=== PATIENT | male | born 1950 | race Caucasian/White ===

== ENCOUNTER 2017-05-27 20:32 | Inpatient (IN) | payer MEDICARE, MEDICAID ==
[2017-05-27 21:20] LABS: Hematocrit 42.4 % (42.0-52.0); Mean Cell Volume 96.6 fl (78-100); Mean Corpuscular Hemoglobin 29.6 pg (27-31); Mean Corpuscular Hgb Conc 30.7 g/dl (32-36); Mean Platelet Volume 10.1 fl (6.0-9.5); Neutrophil # 6.2 K/mm3 (1.3-6.0); Neutrophil % 69.8 % (42-75.0); Platelet Count 241 K/mm3 (150-450); Red Blood Count 4.39 M/mm3 (4.7-6.0); Red Cell Distribution Width 16.8 % (11.5-14.0); White Blood Count 8.8 K/mm3 (4.0-10.5)
[2017-05-27 21:40] LABS: ALT 15 U/L (19-67); AST 10 U/L (0-48); Alkaline Phosphatase * 88 U/L (50-170); Anion Gap 12.5 mmol/L (6.8-13.8); BNP * 4753 pg/mL (5-350); Bilirubin, Total 0.4 mg/dL (0.0-1.1); Blood Urea Nitrogen 70 mg/dL (6-23); CRP 2.5 mg/dL (0.0-0.9); Ca. Corrected For Albumin 8.5 mg/dL (8.4-10.2); Chloride 105 mmol/L (97-106); Glucose * 134 mg/dL (70-110); Potassium 5.5 mmol/L (3.4-4.6); Sodium 142 mmol/L (132-142); Total Protein 7.4 gm/dL (6.2-8.2)
[2017-05-27 21:44] LABS: Troponin I Less than 0.017 ng/ml (0.00-0.10)
[2017-05-27] MEDS ORDERED: NORMAL SALINE 1,000 ML IV PRN (22:23)
[2017-05-27] MEDS ORDERED: DEXTROSE 50%-WATER 50 ML SYRG IV ONE (22:24)
[2017-05-27] MEDS ORDERED: INSULIN REGULAR, HUMAN 100 UNITS/ML VIAL IV ONE (22:25)
[2017-05-27] MEDS ORDERED: CALCIUM GLUCONATE 4.65 MEQ/10 ML VIAL IV ONE ×2 (22:27→22:40)
[2017-05-27] MEDS ORDERED: ALBUTEROL SULFATE 2.5 MG/0.5 ML VIAL.NEB IH ONE ×2 (22:27→22:40)
[2017-05-27] MEDS ORDERED: SODIUM POLYSTYRENE SULFON/SORB 15 G/60 ML BTL PO ONE (22:29)
[2017-05-27] MEDS ORDERED: FUROSEMIDE 10 MG/ML VIAL IV ONE (22:33)
[2017-05-27] MEDS ORDERED: FUROSEMIDE 10 MG/ML VIAL ONE (22:40)
[2017-05-27] MEDS ORDERED: INSULIN REGULAR, HUMAN 100 UNITS/ML VIAL ONE (22:41)
[2017-05-27] MEDS ORDERED: SODIUM POLYSTYRENE SULFON/SORB 15 G/60 ML BTL ONE (22:41)
[2017-05-27] MEDS ORDERED: DEXTROSE 50%-WATER 50 ML SYRG ONE (22:41)
--- NOTE | 2017-05-27 23:24 | ERNOTE ---
Dyspnea - Date Date of Service: 05/27/17 - General Presenting Symptoms: shortness of breath, difficulty of breathing Time Seen by Provider: 05/27/17 21:03 Source: patient - Immun/Allergies/Home Medications Immunizations: IMMUNIZATION HX Immunizations Up to Date Yes History of Influenza Vaccine No Hx Pneumococcal Vaccination Yes Allergies/Adverse Reactions: Allergies No Known Allergies Allergy (Verified 02/25/16 13:15) Home Medications: HOME MEDICATIONS Potassium Chloride [Klor-Con M10] 10 meq PO BID 01/03/16 [Last Taken Unknown] RX: Omeprazole [Prilosec] 20 mg PO DAILY #30 cap 01/06/16 [Last Taken Unknown] Furosemide [Lasix] 80 mg PO DAILY 02/09/16 [Last Taken Unknown] RX: Lisinopril 5 mg PO DAILY 02/25/16 [Last Taken Unknown] Carvedilol [Coreg] 3.125 mg PO DAILY 07/31/16 [Last Taken Unknown] RX: Betamethasone Dipropionate 45 gm TP BID #45 cream..g. 07/31/16 [Last Taken Unknown] - History of Present Illness Narrative: patient had labs today and noted to have potassium of 6.5, instructed to come to hospital for treatment Severity: moderate Treatment ALLERGY PHYSICIAN: by patient Initiating event: Reports: unknown Frequency of episodes: Reports: frequent episodes Modifying Factors - (Improves): Reports: nothing Modifying Factors (Worsens): Reports: activity Associated Symptoms-Dyspnea: Reports: ankle/leg swelling, dizziness, lightheadedness, weakness Prior Treatment: Reports: recently seen, treated by physician Review of Systems - Review of Systems Constitutional: Present: See HPI, fatigue, malaise EYE: Present: no symptoms reported ENT: Present: no symptoms reported Respiratory: Present: shortness of breath, cough, orthopnea, wheezing Cardiology: Present: no symptoms reported Gastrointestinal/Abdominal: Present: no symptoms reported Genitourinary: Present: no symptoms reported Musculoskeletal: Present: no symptoms reported Skin: Present: no symptoms reported Neurological: Present: no symptoms reported Endocrine: Present: no symptoms reported Hematologic/Lymphatic: Present: no symptoms reported Psych: Present: no symptoms reported All Other Systems: All systems neg except as marked - Patient's Past Medical History Patient History - Medical: Chronic Pain, GERD Patient History - Cardiac/Respiratory: CHF, COPD Patient History - Cancer: No Hx of Cancer Patient History - Surgical Procedures: No surgical history Patient History - Other: None - Family History Mother Family History - Medical: Father Family History - Medical: , No pertinent hx - Social History Living Situations: home Abuse History: No History of abuse Psych History: No pertinent hx Smoking Status: Current every day smoker Patient requests Smoking Cessation Consult: No Initiate information on Smoking Cessation: No Alcohol Use: rarely Drug Use: none - Immunizations Immunizations Up to Date: Yes Hx Pneumococcal Vaccination: Yes History of Influenza Vaccine: No Physical Exam - Physical Exam General Appearance: Present: mild distress, anxious Head Exam: Present: normal inspection, no evidence of injury Eye Exam: Normal inspection: bilateral, PERRL: bilateral, EOMI: bilateral Ears, Nose, Throat: Present: normal ENT inspection Neck: Present: normal inspection, nontender Respiratory: Present: respiratory distress, rales, rhonchi, wheezing Cardiovascular/Chest: Present: regular rate, rhythm, no murmur, normal peripheral pulses Peripheral Pulses: N=norm/S=strong/W=weak/B=bound/A=absent: Carotid (R): Normal , Carotid (L): Normal, Radial (R): Normal, Radial (L): Normal, Femoral (R): Normal, Femoral (L): Normal, Dorsalis-pedis (R): Normal, Dorsalis-pedis (L): Normal Gastrointestinal/Abdominal: Present: normal bowel sounds, nontender, nondistended, soft Back Exam: Present: normal inspection, normal range of motion, no CVA tenderness , no vertebral tenderness Extremity Exam: Present: normal inspection, normal range of motion, decreased range of motion, pedal edema Neurological Exam: Present: alert, oriented, normal mood/affect DTR: N=norm/NB=norm/brisk/A=abs/DD=dull/dimin/HC=hyperactive: Bicep (R): Normal , Bicep (L): Normal, Tricep (R): Normal, Tricep (L): Normal, Knee (R): Normal, Knee (L): Normal, Ankle (R): Normal, Ankle (L): Normal Skin Exam: Present: normal color, warm/dry ED Progress - Results and Orders Patient's Lab Results:: I have reviewed the patient's lab results. - Vital Signs Patient's Vital Signs:: I have reviewed the patient's vital signs. Vital Signs: Vital Signs 05/27/17 05/27/17 05/27/17 20:38 21:13 22:49 Temperature 36.4 C L Pulse Rate 73 74 Respiratory 20 20 Rate Blood Pressure 115/62 112/52 O2 Sat by Pulse 91 91 90 Oximetry 05/27/17 22:58 Temperature Pulse Rate 74 Respiratory Rate Blood Pressure 112/52 O2 Sat by Pulse Oximetry - Progress/Reassessment Chief Complaint: Dyspnea Progress:: Unchanged - Transfer of Care Expected Disposition: Admit Plan - Plan Plan: patient to be admitted for hyperkalemia, chf and renal insufficeny Departure Clinical Impression: Hyperkalemia, CHF (congestive heart failure), Acute exacerbation of CHF ( congestive heart failure) - Departure Disposition: [facility] Condition: Serious
[2017-05-28] MEDS ORDERED: ALBUTEROL SULFATE/IPRATROPIUM 3 ML NEBU IH PRN (01:02)
--- NOTE | 2017-05-28 01:12 | HP ---
Chief Complaint - Chief Complaint Date of Service: 05/28/17 Time of Service: 01:04 Chief Complaint: Hyperkalemia, dyspnea History of Present Illness: 66 years old male adm to the hospital with reports of shortness of breath, cough and orthopnea. Pt stated he was instructed by PCP to come to the hospital because his potassium was 6.5. pt is been uncooperative and non compliant. Additional information was obtained from previous records and ER notes.While in ER pt stated he was getting shortness of breath more than usual. He has a non productive cough and smoke a pack and half cigarette daily. In ER BNP 4753, Bun/ Cre 70/2.0 significantly higher than baseline and GFR 36. October 2015 2 D echo : EF 45-50% Moderate concenteric LV hypertrophy. A/E reversed possible diastolic dysfunction. Plan of care discussed with pt he verbalized understanding and agrees. - Patient's Past Medical History Patient History - Medical: Chronic Pain, GERD Patient History - Cardiac/Respiratory: CHF, COPD, Hypertension, Other - pulmonary edema,chronic renal failure Patient History - Cancer: No Hx of Cancer Patient History - Surgical Procedures: No surgical history Patient History - Other: None - Family History Mother Family History - Medical: Family History - Cardiac/Respiratory: No pertinent hx Family History - Cancer: No pertinent family hx Father Family History - Medical: , No pertinent hx Family History - Cardiac/Respiratory: No pertinent hx Family History - Cancer: No pertinent family hx - Social History Living Situations: home Abuse History: Hx of Substance Use Psych History: No pertinent hx Does anyone smoke in the home?: Yes Smoking Status: Current every day smoker Have you smoked in the past 12 months: Yes Patient requests Smoking Cessation Consult: Yes Initiate information on Smoking Cessation: Yes Alcohol Use: rarely Drug Use: none - Immunizations Immunizations Up to Date: Yes Hx Pneumococcal Vaccination: Yes History of Influenza Vaccine: No Review Of Systems (GEN) - Review of Systems Generalized/Overall Review: Present: No Symptoms Reported EENTM: Present: No Symptoms Reported Respiratory: Present: Cough, Shortness of Breath, Orthopnea Cardiac: Present: Edema Abdominal: Present: No Symptoms Reported Genitourinary: Present: Frequency Musculoskeletal: Present: No Symptoms Reported Neurological: Present: No Symptoms Reported Skin: Present: No Symptoms Reported Endocrine: Present: No Symptoms Reported Immunizations: IMMUNIZATION HX Immunizations Up to Date Yes History of Influenza Vaccine No Hx Pneumococcal Vaccination Yes Allergies/Adverse Reactions: Allergies Allergy/AdvReac Type Severity Reaction Status Date / Time No Known Allergies Allergy Verified 02/25/16 13:15 Home Medications: HOME MEDICATIONS Potassium Chloride [Klor-Con M10] 10 meq PO BID 01/03/16 [Last Taken Unknown] Omeprazole [Prilosec] 20 mg PO DAILY #30 cap 01/06/16 [Last Taken Unknown] Furosemide [Lasix] 80 mg PO DAILY 02/09/16 [Last Taken Unknown] Lisinopril 5 mg PO DAILY 02/25/16 [Last Taken Unknown] Betamethasone Dipropionate 45 gm TP BID #45 cream..g. 07/31/16 [Last Taken Unknown] Carvedilol [Coreg] 3.125 mg PO DAILY 07/31/16 [Last Taken Unknown] Exam - Exam Vital Signs: Vital Signs - Last Taken Temp 36.5 C 05/27/17 23:19 Pulse 72 05/27/17 23:19 Resp 22 H 05/27/17 23:19 BP 122/61 05/27/17 23:19 Pulse Ox 90 05/27/17 23:19 Constitutional: Present: Alert, Oriented x3, Mild distress ENT Exam: Present: hearing grossly normal Eye Exam: bilateral eye: normal inspection Neck: Present: full range of motion Back Exam: Present: no CVA tenderness Respiratory: Present: normal breath sounds, no respiratory distress, crackles Cardiovascular/Chest: Present: regular rate, rhythm, no chest tenderness, no gallop, no JVD, edema Peripheral Pulses: femoral (L): 2+, dorsalis-pedis (R): 2+ Abdomen: Present: Normal bowel sounds, soft, nontender, nondistended /Rectal: Present: Exam deferred Extremity: Present: normal range of motion, non-tender, no calf tenderness, lower extremity edema - BL pititng edema 3+, slow capillary refill, swelling Skin Exam: Present: normal color, cool/dry Lymphatic: Present: no adenopathy Neurologic: Present: oriented x 3 Appearance: Present: appropriate appearance Eye contact: Present: good eye contact, uncooperative Thoughts: Present: normal thought pattern, no apparent hallucination Diagnostic Studies: Laboratory Results WBC 8.8 K/mm3 (4.0-10.5) 05/27/17 21:20 RBC 4.39 M/mm3 (4.7-6.0) L 05/27/17 21:20 Hgb 13.0 gm/dL (13.5-18.0) L 05/27/17 21:20 Hct 42.4 % (42.0-52.0) 05/27/17 21:20 MCV 96.6 fl (78-100) 05/27/17 21:20 MCH 29.6 pg (27-31) 05/27/17 21:20 MCHC 30.7 g/dl (32-36) L 05/27/17 21:20 RDW 16.8 % (11.5-14.0) H 05/27/17 21:20 Plt Count 241 K/mm3 (150-450) 05/27/17 21:20 MPV 10.1 fl (6.0-9.5) H 05/27/17 21:20 Immature Gran % (Auto) 0.60 % (0.001-0.429) H 05/27/17 21:20 Immature Gran # (Auto) 0.05 K/mm3 (0.000-0.0310) H 05/27/17 21:20 Neutrophils % 69.8 % (42-75.0) 05/27/17 21:20 Lymphocytes % 21.5 % (20-51) 05/27/17 21:20 Monocytes % 6.3 % (0.0-9) 05/27/17 21:20 Eosinophils % 1.2 % (0.0-3.0) 05/27/17 21:20 Basophils % 0.6 % (0.0-1.0) 05/27/17 21:20 Nucleated RBC % 0.0 k/mm3 (0-1) 05/27/17 21:20 Neutrophils # 6.2 K/mm3 (1.3-6.0) H 05/27/17 21:20 Lymphocytes # 1.9 k/mm3 (1.5-3.5) 05/27/17 21:20 Monocytes # 0.6 k/mm3 (0.0-1.0) 05/27/17 21:20 Eosinophils # 0.1 k/mm3 (0.0-0.7) 05/27/17 21:20 Absolute Basophils 0.1 k/mm3 (0.0-0.1) 05/27/17 21:20 Sodium 142 mmol/L (132-142) 05/27/17 21:20 Plasma Sodium 143 mmol/L (130-142) H 05/27/17 21:20 Potassium 5.5 mmol/L (3.4-4.6) H 05/27/17 21:20 Chloride 105 mmol/L (97-106) 05/27/17 21:20 Carbon Dioxide 30.0 mmol/L (24-32.6) 05/27/17 21:20 Anion Gap 12.5 mmol/L (6.8-13.8) 05/27/17 21:20 BUN 70 mg/dL (6-23) H 05/27/17 21:20 Creatinine 2.00 mg/dL (0.4-1.4) H 05/27/17 21:20 Est GFR (Non-Af Amer) 36 mL/min (60-130) L 05/27/17 21:20 BUN/Creatinine Ratio 35.0 (9.0-21.6) H 05/27/17 21:20 Random Glucose 134 mg/dL (70-110) H 05/27/17 21:20 Calcium 8.0 mg/dL (7.9-10.9) 05/27/17 21:20 Calcium Adj for Albumin 8.5 mg/dL (8.4-10.2) 05/27/17 21:20 Total Bilirubin 0.4 mg/dL (0.0-1.1) 05/27/17 21:20 AST 10 U/L (0-48) 05/27/17 21:20 ALT 15 U/L (19-67) L 05/27/17 21:20 Alkaline Phosphatase 88 U/L (50-170) 05/27/17 21:20 Troponin I Less than 0.017 ng/ml (0.00-0.10) 05/27/17 21:20 C-Reactive Prot, Quant 2.5 mg/dL (0.0-0.9) H 05/27/17 21:20 B-Natriuretic Peptide 4753 pg/mL (5-350) H 05/27/17 21:20 Total Protein 7.4 gm/dL (6.2-8.2) 05/27/17 21:20 Albumin 3.0 gm/dl (3.4-5.0) L 05/27/17 21:20 Assessment/Plan - Narrative Narrative: Acute exacerbation of CHF (congestive heart failure) Seen on CXR: vascular congestion, reports of dyspnea, orthopnea and non productive cough. BLE pitting edema, No JVD He was diurese with Lasix 80mg x1 for volume overload. will continue with daily dose IV 2 gm NA diet 1 Daily weights and strict I/O R Continue with telemetry monitoring, CHF teaching. Daily BMP, BNP pending Troponin x2 0.017 Hyperkalemia- gradually improving On adm potassium level 5.5---->5.3----> In ER he was given Lasix, Insulin Chronic renal failure On adm Bun / cre 70/2.0, significantly higher compared to previous adm Lisinopril 5mg daily Monitor weight daily HTN (hypertension)- stable On adm 122/61 Continue with home dose of medications Monitor vital signs Nicotine dependence Nicotine patch. pt refused Cessation education Obesity BMI of 40.9 Code status: DNR VTE ppx: Ambulate and SCD GI ppx: omeprazole Time 40 minutes,previous records reviewed and case discussed with DR Petersen. - Assessment/Plan (1) Acute exacerbation of CHF (congestive heart failure) Problem: Acute (2) Hyperkalemia Problem: Acute (3) HTN (hypertension) Problem: Acute (4) Nicotine dependence Problem: Chronic (5) Obesity Problem: Chronic
[2017-05-28] MEDS: NICOTINE 21 MG PATC TD SCH ×2 (02:11→23:12)
[2017-05-28 02:18] LABS: Potassium 5.3 mmol/L (3.4-4.6)
[2017-05-28 02:20] LABS: Troponin I Less than 0.017 ng/ml (0.00-0.10)
[2017-05-28 06:07] LABS: Anion Gap 12.4 mmol/L (6.8-13.8); BUN/Creatinine Ratio 37.3 (9.0-21.6); Calcium * 8.3 mg/dL (7.9-10.9); Carbon Dioxide 29.1 mmol/L (24-32.6); Estimated Creat Clear 46.3; Potassium 5.5 mmol/L (3.4-4.6)
[2017-05-28] MEDS: PANTOPRAZOLE SODIUM 20 MG TABLET.DR PO SCH (06:46)
[2017-05-28] MEDS ORDERED: SODIUM POLYSTYRENE SULFON/SORB 15 G/60 ML BTL PO ONE (07:34)
[2017-05-28] MEDS: CARVEDILOL 3.125 MG TABLET PO SCH (08:56)
[2017-05-28] MEDS: LISINOPRIL 5 MG TABLET PO SCH (08:57)
[2017-05-28] MEDS ORDERED: FUROSEMIDE 10 MG/ML VIAL IV SCH (09:00)
[2017-05-28] MEDS ORDERED: FUROSEMIDE 10 MG/ML VIAL IV ONE (19:17)
[2017-05-29] MEDS: NICOTINE 21 MG PATC TD SCH (01:38)
[2017-05-29 05:56] LABS: Anion Gap 8.9 mmol/L (6.8-13.8); BUN/Creatinine Ratio 36.7 (9.0-21.6); Calcium * 8.5 mg/dL (7.9-10.9); Carbon Dioxide 33.6 mmol/L (24-32.6); Estimated Creat Clear 51.6; Potassium 4.5 mmol/L (3.4-4.6)
[2017-05-29] MEDS: PANTOPRAZOLE SODIUM 20 MG TABLET.DR PO SCH (07:06)
--- NOTE | 2017-05-29 07:28 | PN ---
Subjective - Date and Time Seen Date: 05/29/17 Time: 07:21 Subjective Narrative: Patient seen today stated he was feeling better and wants to go home. He has been hanging down his legs most of the time and the swelling had subside a a little. He denies wheezing and does have occasional shortness of breath with exertion. he has frequency with urination while on lasix overnight and had good out-put. pt stated a month ago his right foot 5th toe nail fell out. He denies any injury to the toe but noticed had had gotten black over the month without pain or drainage. pt stated he rather see a foot doctor out-pt that to stay today and be seen. Objective - Review of Systems Generalized/Overall Review: Reports: No Symptoms Reported EENTM: Reports: No Symptoms Reported Respiratory: Reports: Cough, Shortness of Breath, Orthopnea Cardiac: Reports: No Symptoms Reported Abdominal: Reports: No Symptoms Reported Genitourinary Symptoms: Reports: No Symptoms Reported Musculoskeletal Complaints: Reports: No Symptoms Reported Neurological: Reports: No Symptoms Reported Skin: Reports: No Symptoms Reported Endocrine: Reports: No Symptoms Reported - Vitals Vitals: Last Vital Signs Temp 37 C 05/29/17 06:36 Pulse 84 05/29/17 06:36 Resp 20 05/29/17 06:36 BP 124/67 05/29/17 06:36 Pulse Ox 92 05/29/17 06:36 - Abnormal Lab Findings Abnormal Lab Findings: Abnormal Lab Results 05/29/17 Range/Units 05:05 Carbon Dioxide 33.6 H (24-32.6) mmol/L BUN 61 H (6-23) mg/dL Creatinine 1.66 H (0.4-1.4) mg/dL Est GFR (Non-Af Amer) 44 L (60-130) mL/min BUN/Creatinine Ratio 36.7 H (9.0-21.6) Random Glucose 147 H (70-110) mg/dL B-Natriuretic Peptide 8433 H (5-350) pg/mL - Exam Constitutional: Present: Alert, Oriented x3, Cooperative, Morbidly obese ENT Exam: Present: hearing grossly normal Neck: Present: full range of motion Respiratory: Present: chest non-tender, no respiratory distress, decreased breath sounds, crackles, wheezing Cardiovascular/Chest: Present: regular rate, rhythm, no chest tenderness, edema Abdomen: Present: Normal bowel sounds, soft, nontender, nondistended /Rectal: Present: Exam deferred Extremity: Present: normal range of motion, other - Right foot 5th toe necrotic Skin Exam: Present: cool/dry Neurologic: Present: oriented x 3 Appearance: Present: appropriate appearance Eye contact: Present: cooperative, good eye contact Thoughts: Present: normal thought pattern Assessment/Plan Plan Narrative: Acute exacerbation of CHF (congestive heart failure) Seen on CXR: vascular congestion, reports of dyspnea, orthopnea and non productive cough. BLE pitting edema, No JVD He was diurese with Lasix 80mg x1 for volume overload. will continue with daily dose IV 2 gm NA diet 1 Daily weights and strict I/O 144kg-----> today weight 142 kg CHF teaching. BNP 8433 significantly higher than on previous adm Had additional dose Lasix 80mg x1 overnight Troponin x2 0.017 Chronic renal failure- at his baseline On adm Bun / cre 70/2.0----> 61/1.66 currently at his baseline Lisinopril 5mg daily Monitor weight daily HTN (hypertension)- stable BP 124/67 Continue with home dose of medications Monitor vital signs Nicotine dependence Nicotine patch. pt refused Cessation education Obesity BMI of 40.9 Hyperkalemia-Resolved On adm potassium level 5.5---->5.3---->4.5 In ER he was given Lasix, Insulin Necrotic toe Podiatry consulted Code status: DNR VTE ppx: Ambulate and SCD GI ppx: omeprazole Time 15 minutes,previous records reviewed and case discussed with DR Petersen. - Problems/Diagnosis (1) Acute exacerbation of CHF (congestive heart failure) Problem: Acute (2) Hyperkalemia Problem: Acute (3) HTN (hypertension) Problem: Acute (4) Nicotine dependence Problem: Chronic (5) Obesity Problem: Chronic
[2017-05-29 08:12] LABS: Chol/HDL Risk Ratio 4.6 mg/dL (3.3-5.0); Hemoglobin A1C 7.7 % (4.00-6.0)
[2017-05-29] MEDS: CARVEDILOL 3.125 MG TABLET PO SCH (08:23)
[2017-05-29] MEDS: LISINOPRIL 5 MG TABLET PO SCH (08:23)
[2017-05-29] MEDS: FUROSEMIDE 10 MG/ML VIAL IV SCH ×2 (08:23→20:40)
[2017-05-30] MEDS: NICOTINE 21 MG PATC TD SCH (00:59)
[2017-05-30 06:19] LABS: Anion Gap 9.5 mmol/L (6.8-13.8); BUN/Creatinine Ratio 31.3 (9.0-21.6); Calcium * 8.5 mg/dL (7.9-10.9); Estimated Creat Clear 44.6; Potassium 4.5 mmol/L (3.4-4.6)
[2017-05-30] MEDS: PANTOPRAZOLE SODIUM 20 MG TABLET.DR PO SCH (06:38)
--- NOTE | 2017-05-30 06:46 | PN ---
Subjective - Date and Time Seen Date: 05/30/17 Time: 06:00 Subjective Narrative: Patient seen today AOX3 mild distress with spo2 in the 87% on room air, pt stated he has non productive cough, shortness of breath with exertion. pt stated he was taking medications he got a month ago for diabetes but unsure of the name. Objective - Review of Systems Generalized/Overall Review: Reports: No Symptoms Reported EENTM: Reports: No Symptoms Reported Respiratory: Reports: Cough, Shortness of Breath, Orthopnea Cardiac: Reports: No Symptoms Reported Abdominal: Reports: No Symptoms Reported Genitourinary Symptoms: Reports: No Symptoms Reported Musculoskeletal Complaints: Reports: No Symptoms Reported Neurological: Reports: No Symptoms Reported Skin: Reports: No Symptoms Reported Endocrine: Reports: No Symptoms Reported - Vitals Vitals: Last Vital Signs Temp 36.8 C 05/30/17 01:00 Pulse 84 05/30/17 01:00 Resp 18 05/30/17 01:00 BP 81/39 05/30/17 01:00 Pulse Ox 92 05/30/17 01:05 - Abnormal Lab Findings Abnormal Lab Findings: Abnormal Lab Results 05/29/17 05/29/17 05/30/17 Range/Units 05:05 05:05 05:35 Carbon Dioxide 33.0 H (24-32.6) mmol/L BUN 60 H (6-23) mg/dL Creatinine 1.92 H (0.4-1.4) mg/dL Est GFR (Non-Af Amer) 38 L (60-130) mL/min BUN/Creatinine Ratio 31.3 H (9.0-21.6) Random Glucose 134 H (70-110) mg/dL Hemoglobin A1c 7.7 H (4.00-6.0) % HDL Cholesterol 29 L (40-60) mg/dL - Exam Constitutional: Present: Alert, Oriented x3, Cooperative, Well developed, Mild distress, Looks Older than stated age ENT Exam: Present: hearing grossly normal, muffled/hoarse voice Neck: Present: full range of motion Breasts: Present: Exam deferred Respiratory: Present: chest non-tender, decreased breath sounds, crackles, wheezing Cardiovascular/Chest: Present: no chest tenderness, no gallop, edema Abdomen: Present: Normal bowel sounds, soft, nontender, nondistended /Rectal: Present: Exam deferred Extremity: Present: pedal edema, slow capillary refill, swelling Skin Exam: Present: normal color, warm/dry, other - right foot toe nectrotic Neurologic: Present: oriented x 3 Appearance: Present: appropriate appearance Eye contact: Present: cooperative, good eye contact Thoughts: Present: normal thought pattern Assessment/Plan Plan Narrative: Acute exacerbation of CHF (congestive heart failure) Seen on CXR: vascular congestion, reports of dyspnea, orthopnea and non productive cough. BLE pitting edema, No JVD Pt wasnt diuresing well with Lasix 80mg BID dose increased to Lasix 100mg BID 2 gm NA diet 1 Daily weights and strict I/O 144kg----->142 kg----> 144.7 CHF teaching. BNP 8433 significantly higher than on previous adm Troponin x2 0.017 05/29/17 2D-Echo showed moderate LVH, EF 50-55%, dilated RA/RV,RSVP 49, Pulmonary HTN. Unable to do CTS of chest ff. P.E. protocol due to elevated Cr. Will do V/Q scan on Wednesday. COPD Neb treatment schedule and PRN Pulmocort BID While on room air spo2 87% Supplemented oxygen provided overnight will need oxygen walking test before discharge Mucinex for cough pt reluctant to smoking cessation education Chronic renal failure On adm Bun / cre 70/2.0----> 61/1.66 -----> 60/1.92. Bun/ Cre was improving with diuretic however its a slight increased of the cre today Lisinopril 5mg daily Monitor weight daily Newly diagnosed diabetes A1C 7.7 Initiated Glucotrol XL 2.5mg daily BG 134 Accu-check AC+HS consistent carb diet BMI 41.0 Hypotensive BP 88/57--->96/60--->81/39---> Lasix was held overnight Hold home dose of medications Monitor vital signs Nicotine dependence Nicotine patch. pt refused Cessation education Obesity BMI of 40.9 Hyperkalemia-Resolved On adm potassium level 5.5---->5.3---->4.5 In ER he was given Lasix, Insulin Necrotic toe Podiatry consulted and following up on Wednesday PT eval and treatment Code status: DNR VTE ppx: Ambulate and SCD GI ppx: omeprazole Time 30 minutes case discussed with DR Petersen. - Problems/Diagnosis (1) Acute exacerbation of CHF (congestive heart failure) Problem: Acute (2) Hyperkalemia Problem: Acute (3) HTN (hypertension) Problem: Acute (4) Nicotine dependence Problem: Chronic (5) Obesity Problem: Chronic (6) Diabetes Problem: Acute (7) COPD (chronic obstructive pulmonary disease) Problem: Chronic
[2017-05-30] MEDS: glipiZIDE 2.5 MG TAB.SR.24H PO SCH (07:31)
[2017-05-30] MEDS: BUDESONIDE 0.5 MG/2 ML VIAL.NEB IH SCH ×2 (07:40→18:29)
[2017-05-30] MEDS: CARVEDILOL 3.125 MG TABLET PO SCH (08:45)
[2017-05-30] MEDS: LISINOPRIL 5 MG TABLET PO SCH (08:46)
[2017-05-30] MEDS: FUROSEMIDE 10 MG/ML VIAL IV SCH ×2 (08:46→20:42)
[2017-05-30] MEDS: ACETAMINOPHEN WITH CODEINE 1 EACH TABLET PO PRN (23:29)
[2017-05-31] MEDS: NICOTINE 21 MG PATC TD SCH (01:07)
[2017-05-31] MEDS: ACETAMINOPHEN WITH CODEINE 1 EACH TABLET PO PRN ×2 (06:00→13:14)
[2017-05-31] MEDS: BUDESONIDE 0.5 MG/2 ML VIAL.NEB IH SCH ×2 (06:08→18:01)
[2017-05-31 06:28] LABS: Anion Gap 9.7 mmol/L (6.8-13.8); BUN/Creatinine Ratio 33.9 (9.0-21.6); Calcium * 8.9 mg/dL (7.9-10.9); Carbon Dioxide 33.9 mmol/L (24-32.6); Estimated Creat Clear 51.9; Potassium 4.6 mmol/L (3.4-4.6)
[2017-05-31] MEDS: PANTOPRAZOLE SODIUM 20 MG TABLET.DR PO SCH (07:20)
[2017-05-31] MEDS: glipiZIDE 2.5 MG TAB.SR.24H PO SCH (07:21)
[2017-05-31] MEDS: CARVEDILOL 3.125 MG TABLET PO SCH (09:26)
[2017-05-31] MEDS: LISINOPRIL 5 MG TABLET PO SCH (09:29)
[2017-05-31] MEDS: FUROSEMIDE 10 MG/ML VIAL IV SCH (09:54)
--- NOTE | 2017-05-31 12:17 | PN ---
Subjective - Date and Time Seen Date: 05/31/17 Time: 12:11 Subjective Narrative: Patient still with ORTEGA. V/Q scan shows low probability of P.E. Objective - Review of Systems Generalized/Overall Review: Reports: Weakness. Denies: Chills, Fever EENTM: Reports: No Symptoms Reported Respiratory: Reports: Shortness of Breath, Orthopnea Cardiac: Reports: Edema. Denies: Chest Pain, Palpitations Abdominal: Denies: Nausea, Vomiting Genitourinary Symptoms: Denies: Urgency, Dysuria - Vitals Vitals: Last Vital Signs Temp 36.9 C 05/31/17 09:25 Pulse 58 L 05/31/17 09:54 Resp 20 05/31/17 09:25 BP 84/46 05/31/17 09:54 Pulse Ox 90 05/31/17 09:25 - Abnormal Lab Findings Abnormal Lab Findings: Abnormal Lab Results 05/31/17 Range/Units 05:55 Carbon Dioxide 33.9 H (24-32.6) mmol/L BUN 56 H (6-23) mg/dL Creatinine 1.65 H (0.4-1.4) mg/dL Est GFR (Non-Af Amer) 45 L (60-130) mL/min BUN/Creatinine Ratio 33.9 H (9.0-21.6) Random Glucose 129 H (70-110) mg/dL B-Natriuretic Peptide 8641 H (5-350) pg/mL - Exam Constitutional: Present: Alert, Oriented x3, Cooperative ENT Exam: Present: hearing grossly normal Neck: Present: supple Respiratory: Present: decreased breath sounds, No rales, No wheezing Cardiovascular/Chest: Present: regular rate, rhythm, no JVD, no murmur Abdomen: Present: Normal bowel sounds, soft, nontender, nondistended Extremity: Present: no calf tenderness, lower extremity edema Assessment/Plan - Problems/Diagnosis (1) Acute exacerbation of CHF (congestive heart failure) Problem: Acute Narrative: Echo shows mild to moderate RA/RV dilatation, moderated LVH, possible diastolic dysfunction, EF 50-55%, RSVP 49. will get cardiology consult in a.m. (2) Diabetes Problem: Acute (3) Necrosis of toe Problem: Acute Narrative: for amputation by Podiatry on outpatient basis. (4) Hyperkalemia Problem: Resolved (5) COPD (chronic obstructive pulmonary disease) Problem: Chronic (6) HTN (hypertension) Problem: Chronic
--- NOTE | 2017-05-31 14:26 | CONS ---
- Reason for consultation (1) Necrosis of toe Date of Service: 05/31/17 HPI - General Date of Service: 05/31/17 Narrative: Pt evaluated at bedside resting. He was admitted over the weekend from the ED. Upon exam, he was found to have necrosis of his right 5th toe. States that about a month, maybe 2, ago his toenail fell off. Since that time he has noticed progressive darkening of the toe. States that it does cause him pain on occasion. Was recently diagnosed with DM. States that he often feels like he is walking on needles. States that he "just wants the toe cut off." I was consulted for further evaluation and possible surgical care. Source: patient Exam Limitations: no limitations - History of Present Illness Allergies/Adverse Reactions: Allergies No Known Allergies Allergy (Verified 02/25/16 13:15) Home Medications: Home Medications Medication Instructions Recorded Last Taken Potassium Chloride [Klor-Con M10] 10 meq PO BID 01/03/16 Unknown Furosemide [Lasix] 80 mg PO DAILY 02/09/16 Unknown Lisinopril 5 mg PO DAILY 02/25/16 Unknown Carvedilol [Coreg] 3.125 mg PO DAILY 07/31/16 Unknown - Patient's Past Medical History Patient History - Medical: Chronic Pain, GERD Patient History - Cardiac/Respiratory: CHF, COPD, Hypertension, Other - pulmonary edema,chronic renal failure Patient History - Cancer: No Hx of Cancer Patient History - Surgical Procedures: No surgical history Patient History - Other: None - Family History Mother Family History - Medical: Family History - Cardiac/Respiratory: No pertinent hx Family History - Cancer: No pertinent family hx Father Family History - Medical: , No pertinent hx Family History - Cardiac/Respiratory: No pertinent hx Family History - Cancer: No pertinent family hx - Social History Living Situations: home Abuse History: Hx of Substance Use Psych History: No pertinent hx Does anyone smoke in the home?: Yes Smoking Status: Current every day smoker Have you smoked in the past 12 months: Yes Patient requests Smoking Cessation Consult: Yes Initiate information on Smoking Cessation: Yes Alcohol Use: rarely Drug Use: none - Immunizations Immunizations Up to Date: Yes Hx Pneumococcal Vaccination: Yes History of Influenza Vaccine: No Procedures ASPIRATION OF BURSA (08/25/03) CONTRAST MYELOGRAM (05/20/99) DRESSING OF WOUND NEC (08/04/12) INJECT STEROID (07/15/11) INJECTION INTO JOINT (07/15/11) OTHER SKIN & SUBQ I D (07/29/12) PACKED CELL TRANSFUSION (08/29/05) Medications - Medications Current Medications: Current Medications Acetaminophen/Codeine Phosphate (Tylenol-Codeine 300 Mg/30 Mg) 1 each PO Q6H PRN PRN Reason: Mild pain Stop: 06/29/17 23:06 Last Admin: 05/31/17 13:14 Dose: 1 each Albuterol/Ipratropium (Duoneb 2.5-0.5mg/3ml Soln) 3 ml IH Q4H PRN PRN Reason: Shortness Of Breath Stop: 06/27/17 01:03 Last Admin: 05/30/17 18:03 Dose: 3 ml Budesonide (Pulmicort Respules) 0.5 mg IH BIDRT [facility] Stop: 06/29/17 07:16 Last Admin: 05/31/17 06:08 Dose: 0.5 mg Carvedilol (Coreg) 3.125 mg PO DAILY [facility] Stop: 06/27/17 09:01 Last Admin: 05/31/17 09:26 Dose: Not Given Glipizide (Glucotrol Xl) 2.5 mg PO DAILY@0700 [facility] Stop: 06/29/17 07:01 Last Admin: 05/31/17 07:21 Dose: 2.5 mg Guaifenesin (Mucinex) 600 mg PO BID [facility] Stop: 06/27/17 01:16 Last Admin: 05/31/17 09:28 Dose: 600 mg Lisinopril (Zestril) 5 mg PO DAILY [facility] Stop: 06/27/17 09:01 Last Admin: 05/31/17 09:29 Dose: Not Given Nicotine (Nicoderm) 21 mg TD Q24H [facility] Stop: 06/27/17 01:16 Last Admin: 05/31/17 01:07 Dose: 21 mg Pantoprazole Sodium (Protonix) 20 mg PO DAILY@0700 [facility] Stop: 06/27/17 07:01 Last Admin: 05/31/17 07:20 Dose: 20 mg Review of Systems - Review of Systems Cardiac: Present: Edema Neurological: Present: Tingling Skin: Present: Other - Necrotic right 5th toe Physical Examination - Exam Vital Signs: Vital Signs - Last Taken Temp 36.9 C 05/31/17 09:25 Pulse 58 L 05/31/17 09:54 Resp 20 05/31/17 09:25 BP 84/46 05/31/17 09:54 Pulse Ox 90 05/31/17 09:25 O2 Oxygen Delivery Method Nasal Cannula Constitutional: Present: Alert, Oriented x3, Cooperative Peripheral Pulses: dorsalis-pedis (R): 1+, dorsalis-pedis (L): 1+ Extremity: Present: lower extremity edema Skin Exam: Present: other - Dry, gangrenous changes to distal aspect of right 5th toe. Tender on manipulation. Mild foul odor present. No localized SOI. Appearance: Present: disheveled Eye contact: Present: avoids eye contact - Results and Findings: Lab/Microbiology results last 24 hrs: Abnormal/Pending Laboratory Last 24 HRS 05/31/17 05:55 Carbon Dioxide 33.9 H BUN 56 H Creatinine 1.65 H Est GFR (Non-Af Amer) 45 L BUN/Creatinine Ratio 33.9 H Random Glucose 129 H B-Natriuretic Peptide 8641 H - Assessments/Findings (1) Necrosis of toe Diagnosis(s): Discussed diagnosis and treatment plan with pt. Toe is stable at this time. Do recommend amputation of the toe, however can do as outpatient if needed as the patient wants to go home. Discussed with PCP and he will not clear pt for surgery at this time until cardiology has evaluated and cleared him. Will await final clearance from PCP and cardiology. Daily dressing changes with benzoin, dry gauze, and tape. Will get xrays of toe today. Problem: Acute
[2017-05-31] MEDS ORDERED: NICOTINE 21 MG PATC TD SCH (15:21)
[2017-05-31] MEDS ORDERED: FUROSEMIDE 10 MG/ML VIAL IV SCH (21:00)
[2017-06-01] MEDS: ACETAMINOPHEN WITH CODEINE 1 EACH TABLET PO PRN ×2 (05:18→12:03)
[2017-06-01] MEDS: BUDESONIDE 0.5 MG/2 ML VIAL.NEB IH SCH (06:13)
[2017-06-01] MEDS: PANTOPRAZOLE SODIUM 20 MG TABLET.DR PO SCH (07:42)
[2017-06-01] MEDS: glipiZIDE 2.5 MG TAB.SR.24H PO SCH (07:42)
[2017-06-01] MEDS: LISINOPRIL 5 MG TABLET PO SCH (08:22)
[2017-06-01] MEDS: CARVEDILOL 3.125 MG TABLET PO SCH (08:24)
[2017-06-01] MEDS ORDERED: FUROSEMIDE 10 MG/ML VIAL IV SCH (09:00)
--- NOTE | 2017-06-01 09:50 | PN ---
Progess Note - Interim Narrative: 06/01/17 09:49 Await cardiology consult prior to discharge.
[2017-06-01 09:53] VITALS: BP 107/58
--- NOTE | 2017-06-01 12:00 | DS ---
(1) Pulmonary hypertension Problem: Acute (2) Acute exacerbation of CHF (congestive heart failure) Problem: Acute Qualifiers: Congestive heart failure type: diastolic Qualified Code(s): I50.33 - Acute on chronic diastolic (congestive) heart failure (3) Diabetes Problem: Acute (4) Necrosis of toe Problem: Acute (5) Hyperkalemia Problem: Resolved (6) COPD (chronic obstructive pulmonary disease) Problem: Chronic (7) HTN (hypertension) Problem: Chronic Description of Stay: Richard Dunn, is a 66 years old male, patient of Dr. Roman, adm to the hospital on 05/28/2017 with reports of shortness of breath, cough and orthopnea. Pt stated he was instructed by PCP to come to the hospital because his potassium was 6.5. pt is been uncooperative and non compliant. Additional information was obtained from previous records and ER notes.While in ER pt stated he was getting shortness of breath more than usual. He has a non productive cough and smoke a pack and half cigarette daily. In ER BNP 4753, Bun/ Cre 70/2.0 significantly higher than baseline and GFR 36. October 2015 2 D echo : EF 45-50% Moderate concenteric LV hypertrophy. A/E reversed possible diastolic dysfunction. He was admitted and started on diuresis. His BUN/Cr improved but then started to increase again as IV lasix was increased. His diuresis was decreased. His repeat Echo showed moderate LVH, EF of 50-55 %, possible diastolic dysfunction and a mild to moderate RA/RV dilation. RVSP of 49, Pulmonary HTN. A V/Q scan was done and it shpwed low probability of Pulmonary Embolism. He was not diagnosed with COPD in the past and is not on any inhalers/ nebulizers but he is a smoker and his PHTN is likley due to his COPD. His BP will be dropping in the 80's- 90's and his medications at times were held. He qualified for home O2 as his O2 would drop down but he refused home Oxygen. He said he had it the last time and he just returned it. His toe was also noticed to be necrotic and a Podiatry consult was done . She will schedule him a toe amputation on an outpatient basis. He is for discharge today after Cardiology sees him and will schedule him a sleep study/PFT. He is very adamant to go home today. Follow up with Dr. Roman in 1 week. Procedures Performed: none Discharge Disposition: Home self care Disposition: Home self-care Condition: Fair Discharge Activity: Activity as tolerated Discharge Diet: Consistent carbs, Low salt Referrals: Carson Roman MD [Primary Care Provider] - Problem Oriented Discharge Instructions to Patient/Family: Chronic Obstructive Pulmonary Disease, [id number], Heart Failure, [id number] Additional Patient Instructions (free text): Please make TCM appointment at discharge, if applicable. Thank you ! Selena @ ext [phone]. Schedule a sleep study and pulse oximetry study and PFT as outpatient Sleep Study on 07-05-17 @ 8:00pm , they will send information to you in the mail. PFT is scheduled for 06-15-17 @ 1:30pm. Follow up with Dr. Roman in 1 week on 06-10-17 @ 1:00pm. this is a TCM appointment. Prescriptions (Any new or edited meds): Acetaminophen 500 mg PO QID PRN #30 tablet PRN Reason: Pain Albuterol Sulfate [Proair Hfa] 1 - 2 puff IH Q4H PRN #1 inhaler PRN Reason: Shortness Of Breath Albuterol Sulfate/Ipratropium [Duoneb 2.5-0.5MG/3ML Soln] 3 ml IH BID #1 nebu Budesonide [Pulmicort Respules] 0.5 mg IH BIDRT #1 vial.neb glipiZIDE [Glucotrol Xl] 2.5 mg PO DAILY@0700 #30 tab.sr.24h Complete Home Medications List: Complete Home Medication List: Potassium Chloride [Klor-Con M10] 10 meq PO BID 01/03/16 Omeprazole [Prilosec] 20 mg PO DAILY #30 cap 01/06/16 Furosemide [Lasix] 80 mg PO DAILY 02/09/16 Lisinopril 5 mg PO DAILY 02/25/16 Carvedilol [Coreg] 3.125 mg PO DAILY 07/31/16 Acetaminophen 500 mg PO QID PRN #30 tablet 06/01/17 Albuterol Sulfate [Proair Hfa] 1 - 2 puff IH Q4H PRN #1 inhaler 06/01/17 Albuterol Sulfate/Ipratropium [Duoneb 2.5-0.5MG/3ML Soln] 3 ml IH BID #1 nebu Budesonide [Pulmicort Respules] 0.5 mg IH BIDRT #1 vial.neb 06/01/17 Nicotine [Nicoderm] 21 mg TD Q24H patch.td24 06/01/17 glipiZIDE [Glucotrol Xl] 2.5 mg PO DAILY@0700 #30 tab.sr.24h 06/01/17 Amb Orders for Discharge: PFT Complete Time Frame: 3 Days, Location: Determined By Patient Sleep Study Time Frame: 3 Days, Location: Determined By Patient
--- NOTE | 2017-06-02 10:27 | ECHO ---
This report is available in the EMR
== END 2017-06-01 15:00 | disposition home or self-care (01) | DRG 292 ==
LOC: ER 20:32 → MS 23:16 → OBSVTOIN 23:16
PROVIDERS: ADMIT Nurse Practitioner; ATTEND Internal Medicine
PROC: B246ZZZ Ultrasonography of Right and Left Heart (ICD-10-PCS; principal; 2017-05-28)
DX: I50.33 Acute on chronic diastolic (congestive) heart failure (principal); E11.52 Type 2 diabetes mellitus with diabetic peripheral angiopathy with gangrene; I96 Gangrene, not elsewhere classified; E87.5 Hyperkalemia; F17.210 Nicotine dependence, cigarettes, uncomplicated; J44.9 Chronic obstructive pulmonary disease, unspecified; I10 Essential (primary) hypertension
CPT/HCPCS: 36415; 71020; 73630; 76770; 78582; 80048; 80053; 80061; 83036; 83880; 84132; 84484; 85025; 86140; 87040; 87081; 93005; 93306; 94640; 94760; 96374; 96375; 97163; 99285; A9539; A9540

== ENCOUNTER 2017-07-07 14:19 | Emergency (ER) | payer MEDICARE, MEDICAID ==
--- NOTE | 2017-07-07 15:50 | ERNOTE ---
Integumentary HPI - General Presenting Symptoms: rash Time Seen by Provider: 07/07/17 15:42 Source: patient Exam Limitations: no limitations - Immun/Allergies/Home Medications Immunizations: IMMUNIZATION HX Immunizations Up to Date Yes History of Influenza Vaccine No Hx Pneumococcal Vaccination Yes Allergies/Adverse Reactions: Allergies Allergy/AdvReac Type Severity Reaction Status Date / Time No Known Allergies Allergy Verified 07/07/17 14:28 Home Medications: HOME MEDICATIONS Omeprazole [Prilosec] 20 mg PO DAILY #30 cap 01/06/16 [Last Taken Unknown] Furosemide [Lasix] 80 mg PO DAILY 02/09/16 [Last Taken Unknown] Lisinopril 5 mg PO DAILY 02/25/16 [Last Taken Unknown] Albuterol Sulfate [Proair Hfa] 1 - 2 puff IH Q4H PRN #1 inhaler 06/01/17 [Last Taken Unknown] Albuterol Sulfate/Ipratropium [Duoneb 2.5-0.5MG/3ML Soln] 3 ml IH BID #1 nebu [Last Taken Unknown] glipiZIDE [Glucotrol Xl] 2.5 mg PO DAILY@0700 #30 tab.sr.24h 06/01/17 [Last Taken Unknown] Clindamycin HCl [Cleocin HCl] 300 mg PO BID 07/07/17 [Last Taken Unknown] Famotidine [Pepcid] 20 mg PO BID #10 tablet 07/07/17 [Last Taken Unknown] hydrOXYzine PAMOATE [Vistaril] 25 mg PO Q4H PRN #30 cap 07/07/17 [Last Taken Unknown] predniSONE [Deltasone] 20 mg PO BID #10 tablet 07/07/17 [Last Taken Unknown] - History of Present Illness Narrative: For the past day or 2 Location: Reports: generalized Quality: Reports: itching Severity: moderate Exposure: Reports: no cause identified Associated Symptoms: Reports: hives Review of Systems - Review of Systems Constitutional: Present: See HPI EYE: Present: no symptoms reported ENT: Present: no symptoms reported Respiratory: Present: cough - likely secondary to his chronic smoking Cardiology: Present: no symptoms reported Gastrointestinal/Abdominal: Present: no symptoms reported Genitourinary: Present: no symptoms reported Musculoskeletal: Present: no symptoms reported Skin: Present: rash - urticaria Neurological: Present: no symptoms reported Endocrine: Present: no symptoms reported Hematologic/Lymphatic: Present: no symptoms reported Psych: Present: no symptoms reported - Patient's Past Medical History Patient History - Medical: Chronic Pain, GERD Patient History - Cardiac/Respiratory: CHF, COPD, Hypertension, Sleep Apnea, Other - peripheral vascular disease Patient History - Cancer: No Hx of Cancer Patient History - Surgical Procedures: No surgical history Patient History - Other: None - Family History Mother Family History - Medical: Family History - Cardiac/Respiratory: No pertinent hx Family History - Cancer: No pertinent family hx Father Family History - Medical: , No pertinent hx Family History - Cardiac/Respiratory: No pertinent hx Family History - Cancer: No pertinent family hx - Social History Living Situations: home Abuse History: Hx of Substance Use Psych History: No pertinent hx Smoking Status: Current every day smoker - Immunizations Immunizations Up to Date: Yes Hx Pneumococcal Vaccination: Yes History of Influenza Vaccine: No Physical Exam - Physical Exam General Appearance: Present: wd/wn, alert, moderate distress Head Exam: Present: normal inspection Eye Exam: Normal inspection: bilateral, PERRL: bilateral Ears, Nose, Throat: Present: normal ENT inspection, H, normal pharynx Neck: Present: normal inspection, nontender Respiratory: Present: no respiratory distress, no accessory muscle use, chest nontender, lungs clear, other - fine course breath sounds secondary to chronic COPD or bronchitis Cardiovascular/Chest: Present: regular rate, rhythm, no murmur, normal peripheral pulses Gastrointestinal/Abdominal: Present: normal bowel sounds, nontender, nondistended, soft, no organomegaly Rectal Exam: Present: deferred Back Exam: Present: normal inspection, normal range of motion Extremity Exam: Present: normal inspection, non-tender, no edema, normal range of motion Neurological Exam: Present: alert, oriented, normal mood/affect Skin Exam: Present: other - urticarial rash Lymphatic Exam: Present: no adenopathy ED Progress - Vital Signs Patient's Vital Signs:: I have reviewed the patient's vital signs. Vital Signs: Vital Signs 07/07/17 14:25 Temperature 36.4 C L Pulse Rate 129 H Respiratory 19 Rate Blood Pressure 121/62 O2 Sat by Pulse 100 Oximetry - Progress/Reassessment Chief Complaint: Rash Plan - Plan Plan: The most common cause of urticaria his laundry detergent and/or fabric softener. Patient will be started on prednisone, Vistaril and Pepcid and he will consider changing his laundry detergent. He agrees to follow-up with his family physician. Departure Clinical Impression: Contact dermatitis Qualifiers: Contact dermatitis type: irritant Contact dermatitis trigger: unspecified trigger Qualified Code(s): L24.9 - Irritant contact dermatitis, unspecified cause - Departure Disposition: Home self-care Condition: Good Instructions: Contact Dermatitis, [id number] Referrals: Carson Roman MD [Primary Care Provider] - Prescriptions: Famotidine [Pepcid] 20 mg PO BID #10 tablet hydrOXYzine PAMOATE [Vistaril] 25 mg PO Q4H PRN #30 cap PRN Reason: Itching predniSONE [Deltasone] 20 mg PO BID #10 tablet
[2017-07-07 23:04] VITALS: BP 118/64
== END 2017-07-07 16:03 | disposition home or self-care (01) ==
LOC: ER 14:19
DX: L24.9 Irritant contact dermatitis, unspecified cause (principal); F17.200 Nicotine dependence, unspecified, uncomplicated